=== PATIENT | male | born 1995 | race Caucasian/White ===

== ENCOUNTER 2024-04-23 20:32 | Emergency (ER) | payer OTHER, SELFPAY ==
[2024-04-23 20:36] VITALS: BP 117/79; PULSE 84; RESP 16; TEMP 36.8; O2SAT 96; BMI 20.2
--- NOTE | 2024-04-23 22:09 | ED.UPPEXIN ---
HPI - Extremity Injury (Upper) General Time Seen by Provider: 22:19 Date Seen: 04/23/24 Chief Complaint: Extremity Pain/Injury, Upper Stated Complaint: Bump and pain on right arm Time Seen by Provider: 04/23/24 22:09 Source: patient and RN notes reviewed Mode of arrival: ambulatory Limitations: no limitations History of Present Illness HPI narrative: Terry is a very pleasant 29-year-old gentleman previously healthy who comes to the emergency room complaining of right forearm and hand pain. Terry states that he awoke this morning and noticed swelling on the back side of his lower forearm. It was uncomfortable but then the pain definitely increases when he tries to lift anything or he tries to extend his wrist. He cannot recall any trauma at all. He does not remember being bitten by a bee or any other bug. He states when he tries to move his wrist laterally he has tingling going into the thumb. He has never injured this arm before. He has not taken anything for pain. He has tried ice. At rest he has minimal pain and no tingling in his hand. Related Data Home Medications ?Medication ?Instructions ?Recorded ?Confirmed No Known Home Medications 04/23/24 04/23/24 Allergies Allergy/AdvReac Type Severity Reaction Status Date / Time No Known Drug Allergies Allergy Verified 04/23/24 20:43 Review of Systems Status of ROS: Reports: 6 or more systems reviewed and unremarkable except as noted in History and below [facility] Social History service: Yes Exam Narrative: Exam Narrative: Patient is alert and oriented. Very pleasant gentleman in no acute distress. No respiratory distress. Examination of his forearm does show soft tissue edema on the dorsal aspect of the lower forearm from approximately the mid shaft distally resolving prior to the wrist extensor crease. There is tenderness to the touch in this area. Perhaps a slight change in color of the skin with a slow slight erythema. It is not warm to the touch. Palpation over the wrist does not yield any tenderness. At rest passive extension of the thumb or fingers does not increase discomfort. Wrist extension against resistance increases pain. Distally motor is intact. Const: Vital Signs, click to edit/add: Vital Signs - 24 hr 04/23/24 20:36 Temperature 98.3 F Pulse Rate [Left P ulse Oximeter] 84 Respiratory Rate 16 Blood Pressure [Ri ght Upper Arm] 117/79 Pulse Oximetry 96 Oxygen Delivery Me thod Room Air Documenting provider has reviewed patient's vital signs: yes Course Course ED Course: At this time differential diagnosis includes but is not limited to tendinitis, occult trauma, underlying bony fracture, of bug or animal bite. Will x-ray arm at this time. Reevaluation(s) Reevaluation #1: Volar splint placed with immobilization of the wrist. Vital Signs Vital signs: Initial Vital Signs Temperature 98.3 F 04/23/24 20:36 Temperature Source Temporal Artery Scan 04/23/24 20:36 Pulse Rate 84 04/23/24 20:36 Pulse Rhythm Regular 04/23/24 20:36 Respiratory Rate 16 04/23/24 20:36 Blood Pressure 117/79 04/23/24 20:36 Blood Pressure Mean 91 04/23/24 20:36 Blood Pressure Position Sitting 04/23/24 20:36 Pulse Oximetry 96 04/23/24 20:36 Oxygen Delivery Method Room Air 04/23/24 20:36 Vital Signs Temperature 98.3 F 04/23/24 20:36 Pulse Rate 84 04/23/24 20:36 Respiratory Rate 16 04/23/24 20:36 Blood Pressure 117/79 04/23/24 20:36 Pulse Oximetry 96 04/23/24 20:36 Oxygen Delivery Method Room Air 04/23/24 20:36 Temperature 98.3 F 04/23/24 20:36 Pulse Rate 84 04/23/24 20:36 Respiratory Rate 16 04/23/24 20:36 Blood Pressure 117/79 04/23/24 20:36 Pulse Oximetry 96 04/23/24 20:36 Oxygen Delivery Method Room Air 04/23/24 20:36 MDM - Extremity Injury (Upper) MDM Narrative Medical decision making narrative: 1. Right forearm pain-patient awoke with swelling on the distal aspect of his right forearm. Certainly discomfort with any sort of a extension against resistance and therefore some sort of underlying tendinitis is most likely at play. No evidence of a carpal tunnel syndrome. Patient is placed in a splint. He is advised to really limit wrist movement over the next 36 hours. Other possibilities do include soft tissue injury or a bug bite in this area. Would recommend follow-up with orthopedics or the [facility] if he is not improved in 36 hours. Recommend either the use of Aleve or ibuprofen as an anti-inflammatory. Patient is retired [employer] and high stress environment and therefore would like to avoid the use of prednisone as sometimes it does cause dysphoric or rage type reactions. For worsening symptoms would have patient return to the emergency room. 2. Disposition-patient has CMS distally intact. No evidence of discomfort with passive extension of the fingers. Patient placed in a splint. May remove to shower but then would like him to put it back on. Icing as needed. Imaging Data Forearm x-ray: Attestation: I have reviewed the pertinent imaging results. My impression: By my read I do not note any acute fractures, evidence of osteomyelitis. Radiologist's impression: ones: Alignment is normal. No fractures or bone lesions. Joint spaces: Unremarkable. Soft tissues: Unremarkable. Impression: No evidence of an acute bony abnormality. Discharge Plan Discharge Clinical Impression: Forearm pain Qualifiers: Laterality: right Qualified Code(s): M79.631 - Pain in right forearm Patient Disposition: Home, Self-Care Condition: Improved Additional Instructions: Recommend 1 of the following as an anti-inflammatory treatment: Ali-2 tablets every 12 hours for 4 days. Take with food. Or you may use ibuprofen also known as Advil or Motrin 600 mg every 8 hours for 4 days Ice to this area would be helpful. Was place it right over the Emiliano wrap. If you are still having discomfort on Thursday morning, suggest follow-up with the [facility] [phone] or follow-up at the [facility] with Piotr Goodman. [phone] Return to the ER or seek medical attention for worsening symptoms. Prescriptions: No Action No Known Home Medications Follow Up/Referrals: Provider,Not a Local [Primary Care Provider] - Stand Alone Forms: [employer] Info Instructions
--- NOTE | 2024-04-23 22:14 | CRLHL7_ITS ---
For Patients: As a result of the Century Cures Act, medical imaging exams and procedure reports are released immediately into your electronic medical record. You may view this report before your referring provider. If you have questions, please contact your health care provider. Indication: Distal right forearm pain. Technique: Right forearm 2 views. Comparison: None. Findings: Bones: Alignment is normal. No fractures or bone lesions. Joint spaces: Unremarkable. Soft tissues: Unremarkable. Impression: No evidence of an acute bony abnormality. Dictated by Bret Rodriguez MD @ 04/23/2024 10:40:59 PM (Electronically Signed)
[2024-04-23 23:00] VITALS: PULSE 80; RESP 18; O2SAT 98
--- NOTE | 2024-04-23 23:07 | ED.NURSE ---
Splint applied by . CMS intact to fingers upon discharge.
== END 2024-04-23 23:07 | disposition home or self-care (01) ==
PROVIDERS: Emergency Provider Family Medicine
DX: M79.631 Pain in right forearm (principal)
CPT/HCPCS: 29125; 73090; 99283

== ENCOUNTER 2025-03-01 11:05 | Outpatient (CLI) | payer OTHER, SELFPAY | END 2025-03-01 11:06 | disposition home or self-care (01) | PROVIDERS: Visit Provider Family Medicine | DX: R36.9 Urethral discharge, unspecified (principal); Z11.3 Encounter for screening for infections with a predominantly sexual mode of transmission; Z11.59 Encounter for screening for other viral diseases; Z11.4 Encounter for screening for human immunodeficiency virus [HIV] | CPT/HCPCS: 86592; 86703; 86803; 87340; 87491; 87591 ==